=== PATIENT | female | born 1930 | race Caucasian/White ===

== ENCOUNTER → 2017-07-16 | Outpatient (CLI) | payer OTHER ==
[~2017-07-16] MED LIST: AML5T PO; DULO30CA2 PO; PRAV20TA3 PO
[2017-07-16 09:04] LABS: Basophils # (auto) 0 uL; Basophils % (auto) 0.8 % (0.0-2.0); Eosinophils # (auto) 0.3 uL; Eosinophils % (auto) 5.6 % (0.0-7.0); Hematocrit 36.1 % (36.0-46.0); Hemoglobin 11.7 g/dL (12.2-16.2); Lymphocytes # (auto) 1.5 uL; Lymphocytes % (auto) 26.5 % (10.0-50.0); Mean Corpuscular Hemoglobin 31.3 pg (28.0-32.0); Mean Corpuscular Hgb Conc. 32.4 g/dL (32.0-36.0); Mean Corpuscular Volume 96.7 fL (80.0-100.0); Monocytes # (auto) 0.6 uL; Neutrophils # (auto) 3.2 uL; Neutrophils % (auto) 57.1 % (37.0-80.0); Nucleated Red Blood Cells % 0.1 %; Platelet Count (auto) 248 10^3/uL (140-450); Red Blood Cells 3.73 10^6/uL (4.0-5.20); Red Cell Distribution Width 14.8 % (11.8-14.3); White Blood Cell 5.6 10^3/uL (4.4-10.8)
[2017-07-16 09:09] LABS: Urine Bacteria NONE SEEN /hpf (None Seen); Urine Blood Negative /uL (Negative); Urine Specific Gravity 1.009 (1.001-1.035); Urine WBC <1 /hpf (0 - 5)
[2017-07-16 09:28] LABS: Free T4 (Free Thyroxine) 1.13 ng/dL (0.89-1.76)
[2017-07-16 09:29] LABS: Free T3 2.81 pg/mL (2.3-4.2); T3 Total 1.07 ng/mL (0.60-1.81)
[2017-07-16 09:31] LABS: Albumin 3.6 g/dL (3.4-5.0); BUN/Creatinine Ratio 24.8; Bilirubin, Total 0.4 mg/dL (0.2-1.0); Calcium 9.7 mg/dL (8.5-10.1); Potassium 5.3 mmol/L (3.5-5.1); Total Protein 7.3 g/dL (6.4-8.2)
[2017-07-16 10:07] LABS: Folate (Folic Acid) > 24.0 ng/mL (5.38-24)
== END | disposition home or self-care (01) ==
LOC: LAB 08:26
PROVIDERS: ATTEND Family Medicine
DX: I10 Essential (primary) hypertension (principal); E78.5 Hyperlipidemia, unspecified; D64.9 Anemia, unspecified; R19.7 Diarrhea, unspecified
CPT/HCPCS: 36415; 80053; 80061; 81001; 82306; 82607; 82746; 84439; 84443; 84480; 84481; 85025

== ENCOUNTER 2017-08-17 10:40 | Emergency (ER) | payer OTHER ==
[~2017-08-17] VITALS: Ht 160 cm; Wt 65.8 kg
[2017-08-17 10:51] VITALS: BP 123/88
[2017-08-17] MEDS ORDERED: diphenhdrAMINE HCL 50 MG/1 ML VL IM ONE (12:00)
== END 2017-08-17 12:35 | disposition home or self-care (01) ==
LOC: ER 10:40
DX: L25.9 Unspecified contact dermatitis, unspecified cause (principal); H10.32 Unspecified acute conjunctivitis, left eye; E78.5 Hyperlipidemia, unspecified; I10 Essential (primary) hypertension; F17.210 Nicotine dependence, cigarettes, uncomplicated; Z88.0 Allergy status to penicillin; Z79.899 Other long term (current) drug therapy
CPT/HCPCS: 96372; 99283; J1200

== ENCOUNTER 2018-02-18 19:58 | Inpatient (IN) | payer OTHER ==
[~2018-02-18] VITALS: Ht 162.6 cm; Wt 71.0 kg
[2018-02-18] MEDS ORDERED: ASPirin 81 mg TAB PO ONE (20:30)
[2018-02-18] MEDS ORDERED: cloNIDine HCL 0.1 MG TAB PO ONE (21:15)
[2018-02-18 21:45] LABS: Basophils # (auto) 0 uL; Basophils % (auto) 0.6 % (0.0-2.0); Eosinophils # (auto) 0.2 uL; Eosinophils % (auto) 2.5 % (0.0-7.0); Hematocrit 37.6 % (36.0-46.0); Hemoglobin 12.2 g/dL (12.2-16.2); Lymphocytes # (auto) 1.2 uL; Lymphocytes % (auto) 15.3 % (10.0-50.0); Mean Corpuscular Hemoglobin 31.1 pg (28.0-32.0); Mean Corpuscular Hgb Conc. 32.5 g/dL (32.0-36.0); Mean Corpuscular Volume 95.7 fL (80.0-100.0); Monocytes # (auto) 0.7 uL; Monocytes % (auto) 8.5 % (0.0-12.0); Neutrophils # (auto) 5.6 uL; Neutrophils % (auto) 73.1 % (37.0-80.0); Platelet Count (auto) 203 10^3/uL (140-450); Red Blood Cells 3.93 10^6/uL (4.0-5.20); Red Cell Distribution Width 14.6 % (11.8-14.3); White Blood Cell 7.7 10^3/uL (4.4-10.8)
[2018-02-18 22:00] LABS: INR 0.89 (0.9-1.15); Partial Thromboplastin Time 26.7 sec (23.78-33.04); Prothrombin Time 9.6 sec (9.27-12.13)
[2018-02-18] MEDS ORDERED: ONDANSETRON HCL 4 MG/2 ML VIAL IV ONE (22:00)
[2018-02-18 22:01] LABS: Albumin 3.6 g/dL (3.4-5.0); Anion Gap 7 (5-15); Blood Urea Nitrogen 36 mg/dL (7-18); Calcium 9.2 mg/dL (8.5-10.1); Carbon Dioxide 27 mmol/L (21-32); Chloride 107 mmol/L (98-107); Glucose 99 mg/dL (74-106); Magnesium 2.5 mg/dL (1.6-2.6); Potassium 4.9 mmol/L (3.5-5.1); Sodium 141 mmol/L (136-145)
[2018-02-18 22:04] LABS: Alanine Aminotransferase 22 U/L (13-56); Aspartate Aminotransferase 20 U/L (15-37); BUN/Creatinine Ratio 24.5; GFR African American 43 mL/min; GFR Non-African American 36 mL/min
[2018-02-18 22:08] LABS: Alkaline Phosphatase 98 U/L (45-117); Bilirubin, Total 0.2 mg/dL (0.2-1.0); Total Protein 7.3 g/dL (6.4-8.2)
[2018-02-19] MEDS ORDERED: MAGN400C2 PO (05:55)
[2018-02-19] MEDS ORDERED: ALUM1SUS16 PO (06:03)
[2018-02-19] MEDS ORDERED: MEMA10TA PO (06:03)
[2018-02-19] MEDS ORDERED: ALPR0.25 PO (06:03)
[2018-02-19] MEDS ORDERED: LOPE2CAP PO (06:03)
[2018-02-19] MEDS ORDERED: FERR-20 PO (06:03)
[2018-02-19] MEDS ORDERED: SIMV10TA84 PO (06:03)
[2018-02-19] MEDS ORDERED: HYDR-3682 PO (06:03)
[2018-02-19] MEDS ORDERED: ALPRAZolam 0.25 MG TAB PO PRN (08:15)
[2018-02-19] MEDS ORDERED: ACETAMINOPHEN 500 MG TAB PO PRN (08:15)
[2018-02-19] MEDS ORDERED: ONDANSETRON HCL 4 MG/2 ML VIAL IV PRN (08:15)
[2018-02-19 08:29] LABS: Basophils # (auto) 0 uL; Basophils % (auto) 0.7 % (0.0-2.0); Eosinophils # (auto) 0.2 uL; Eosinophils % (auto) 2.8 % (0.0-7.0); Hematocrit 35.3 % (36.0-46.0); Hemoglobin 11.6 g/dL (12.2-16.2); Lymphocytes # (auto) 1.1 uL; Lymphocytes % (auto) 17.8 % (10.0-50.0); Mean Corpuscular Hemoglobin 31.5 pg (28.0-32.0); Mean Corpuscular Hgb Conc. 32.8 g/dL (32.0-36.0); Monocytes # (auto) 0.6 uL; Monocytes % (auto) 9.1 % (0.0-12.0); Neutrophils # (auto) 4.3 uL; Neutrophils % (auto) 69.6 % (37.0-80.0); Nucleated Red Blood Cells % 0.1 %; Platelet Count (auto) 182 10^3/uL (140-450); Red Blood Cells 3.67 10^6/uL (4.0-5.20); Red Cell Distribution Width 14.8 % (11.8-14.3); White Blood Cell 6.1 10^3/uL (4.4-10.8)
[2018-02-19 09:01] LABS: BUN/Creatinine Ratio 26.1; Calcium 9.1 mg/dL (8.5-10.1); Potassium 4.8 mmol/L (3.5-5.1)
[2018-02-19] MEDS ORDERED: NITROGLYCERIN 0.4 MG SL TAB SL ONE (10:00)
[2018-02-19] MEDS: amLODIPine BESYLATE 5 MG TAB PO SCH (10:00)
[2018-02-19] MEDS: MEMANTINE HCL 5 MG TAB PO SCH (10:00)
[2018-02-19] MEDS ORDERED: SOD CHL 0.45% 1,000 ML IV ONE (10:45)
[2018-02-19] MEDS ORDERED: SODIUM CHLORIDE 0.9% 1,000 ML IV ONE (11:30)
[2018-02-19 13:00] VITALS: BP 135/49
[2018-02-19 16:20] VITALS: BP 110/44
[2018-02-19 17:00] VITALS: BP 132/51
[2018-02-19 20:00] VITALS: BP 109/46
[2018-02-19 21:43] VITALS: BP 109/45
[2018-02-20] MEDS: HYDROcodone-ACET 5/325MG TAB PO PRN ×2 (04:24→08:52)
[2018-02-20 05:00] VITALS: BP 106/79
[2018-02-20 06:56] LABS: Basophils # (auto) 0 uL; Basophils % (auto) 0.6 % (0.0-2.0); Eosinophils # (auto) 0.2 uL; Eosinophils % (auto) 4.4 % (0.0-7.0); Hematocrit 36.1 % (36.0-46.0); Hemoglobin 11.5 g/dL (12.2-16.2); Lymphocytes # (auto) 1.1 uL; Lymphocytes % (auto) 19.7 % (10.0-50.0); Mean Corpuscular Hemoglobin 31.6 pg (28.0-32.0); Mean Corpuscular Hgb Conc. 31.9 g/dL (32.0-36.0); Mean Corpuscular Volume 99.1 fL (80.0-100.0); Monocytes # (auto) 0.5 uL; Monocytes % (auto) 9.6 % (0.0-12.0); Neutrophils # (auto) 3.7 uL; Neutrophils % (auto) 65.7 % (37.0-80.0); Nucleated Red Blood Cells % 0.1 %; Platelet Count (auto) 167 10^3/uL (140-450); Red Blood Cells 3.65 10^6/uL (4.0-5.20); White Blood Cell 5.7 10^3/uL (4.4-10.8)
[2018-02-20 07:02] LABS: Anion Gap 11 (5-15); BUN/Creatinine Ratio 26.8; Blood Urea Nitrogen 34 mg/dL (7-18); Calcium 8.5 mg/dL (8.5-10.1); Carbon Dioxide 22 mmol/L (21-32); Chloride 112 mmol/L (98-107); GFR African American 51 mL/min; GFR Non-African American 43 mL/min; Glucose 69 mg/dL (74-106); Potassium 4.9 mmol/L (3.5-5.1); Sodium 145 mmol/L (136-145)
[2018-02-20 09:00] VITALS: BP 124/52
[2018-02-20] MEDS ORDERED: SODIUM CHLORIDE 0.9% 1,000 ML IV ONE (09:45)
[2018-02-20] MEDS: amLODIPine BESYLATE 5 MG TAB PO SCH (10:00)
[2018-02-20] MEDS: MEMANTINE HCL 5 MG TAB PO SCH (10:04)
[2018-02-20 13:00] VITALS: BP 126/60
[2018-02-20 15:05] VITALS: BP 126/60
== END 2018-02-20 16:00 | DRG 682 ==
LOC: ER 19:58 → TELE 19:59 → TELE-CENTR 02-19 12:02
PROVIDERS: ADMIT Nurse Practitioner Family; ATTEND Internal Medicine
DX: I12.9 Hypertensive chronic kidney disease with stage 1 through stage 4 chronic kidney disease, or unspecified chronic kidney disease (principal); N17.0 Acute kidney failure with tubular necrosis; F03.90 Unspecified dementia, unspecified severity, without behavioral disturbance, psychotic disturbance, mood disturbance, and anxiety; I25.10 Atherosclerotic heart disease of native coronary artery without angina pectoris; Z96.642 Presence of left artificial hip joint; F32.9 Major depressive disorder, single episode, unspecified; R91.8 Other nonspecific abnormal finding of lung field; N18.3 Chronic kidney disease, stage 3 (moderate); J44.9 Chronic obstructive pulmonary disease, unspecified; K80.20 Calculus of gallbladder without cholecystitis without obstruction; Z87.891 Personal history of nicotine dependence; Z88.0 Allergy status to penicillin; Z91.048 Other nonmedicinal substance allergy status; Z79.899 Other long term (current) drug therapy; Z80.8 Family history of malignant neoplasm of other organs or systems
CPT/HCPCS: 36415; 71045; 71250; 74176; 80048; 80053; 83735; 83880; 84443; 84484; 85025; 85379; 85610; 85730; 87081; 93005; 93306; 94761; 96361; 96374; J2405

== ENCOUNTER 2018-08-04 06:28 | Inpatient (IN) | payer OTHER ==
[~2018-08-04] VITALS: Ht 162.6 cm; Wt 68.0 kg
[~2018-08-04 06:28] MED LIST changes: +ALPR0.25 PO; +ALUM1SUS16 PO; -AML5T PO; +FERR-20 PO; +HYDR-3682 PO; +LOPE2CAP PO; +MAGN400C2 PO; +MEMA10TA PO; +SIMV10TA84 PO
[2018-08-04] MEDS ORDERED: FUROSEMIDE 40 MG/4 ML VIAL IV ONE (07:15)
[2018-08-04] MEDS ORDERED: VANCOMYCIN 1GM/250ML 250 ML IV ONE (07:45)
[2018-08-04 08:33] LABS: Basophils # (auto) 0.1 uL; Basophils % (auto) 0.9 % (0.0-2.0); Eosinophils # (auto) 0.3 uL; Eosinophils % (auto) 4.5 % (0.0-7.0); Hematocrit 34.5 % (36.0-46.0); Hemoglobin 11.1 g/dL (12.2-16.2); Lymphocytes # (auto) 1.1 uL; Lymphocytes % (auto) 19.6 % (10.0-50.0); Mean Corpuscular Hemoglobin 30.4 pg (28.0-32.0); Mean Corpuscular Hgb Conc. 32.1 g/dL (32.0-36.0); Mean Corpuscular Volume 94.7 fL (80.0-100.0); Monocytes # (auto) 0.6 uL; Monocytes % (auto) 10.8 % (0.0-12.0); Neutrophils # (auto) 3.7 uL; Neutrophils % (auto) 64.2 % (37.0-80.0); Nucleated Red Blood Cells % 0.1 %; Platelet Count (auto) 198 10^3/uL (140-450); Red Blood Cells 3.64 10^6/uL (4.0-5.20); Red Cell Distribution Width 16.2 % (11.8-14.3); White Blood Cell 5.7 10^3/uL (4.4-10.8)
[2018-08-04 08:46] LABS: Alanine Aminotransferase 18 U/L (13-56); Albumin 3.5 g/dL (3.4-5.0); Anion Gap 6 (5-15); Aspartate Aminotransferase 14 U/L (15-37); BUN/Creatinine Ratio 20.8; Blood Urea Nitrogen 30 mg/dL (7-18); Calcium 9.7 mg/dL (8.5-10.1); Carbon Dioxide 27 mmol/L (21-32); Chloride 110 mmol/L (98-107); GFR African American 44 mL/min; GFR Non-African American 37 mL/min; Glucose 84 mg/dL (74-106); Potassium 4.7 mmol/L (3.5-5.1); Sodium 143 mmol/L (136-145)
[2018-08-04 08:50] LABS: Alkaline Phosphatase 83 U/L (45-117); Bilirubin, Total 0.3 mg/dL (0.2-1.0); Total Protein 7.1 g/dL (6.4-8.2)
[2018-08-04 08:54] LABS: INR 0.93 (0.9-1.15); Partial Thromboplastin Time 27.4 sec (23.78-33.04)
[2018-08-04] MEDS ORDERED: ONDANSETRON HCL 4 MG/2 ML VIAL IV PRN (14:00)
[2018-08-04] MEDS ORDERED: NITROGLYCERIN 0.4 MG SL TAB SL PRN (14:00)
[2018-08-04] MEDS ORDERED: MORPHINE SULF INJ 2 MG/ML SYRINGE 1ML IV PRN (14:00)
[2018-08-04] MEDS ORDERED: MORPHINE SULFATE 4 MG/ML SYR/VIAL IV PRN (14:00)
[2018-08-04] MEDS ORDERED: ACETAMINOPHEN 500 MG TAB PO PRN (14:00)
[2018-08-04] MEDS: HYDROcodone-ACET 5/325MG TAB PO PRN (17:47)
[2018-08-04] MEDS: FERROUS SULFATE 325 MG TAB PO SCH (18:14)
[2018-08-04 18:22] LABS: Urine Bacteria FEW /hpf (None Seen); Urine Blood 2+ /uL (Negative); Urine Specific Gravity 1.005 (1.001-1.035); Urine WBC 61 /hpf (0 - 5)
--- NOTE | 2018-08-04 20:03 | NUR ---
Patient arrived on unit form ED. Patient awake and alert, no s/s of distress. Bed locked in lowest position with call light in reach. Will continue to monitor.
--- NOTE | 2018-08-04 21:22 | NUR ---
PER PATIENT She lives at [facility] and is in a wheelchair and does not walk. She has no teeth but no problems eating. Addendum: 08/04/18 at 2136 by TAPAN DARLING RN Amended: Links added.
[2018-08-04 22:00] VITALS: BP 126/55
[2018-08-04] MEDS ORDERED: ATORVASTATIN 20 MG TAB PO SCH (22:00)
[2018-08-04] MEDS: MEMANTINE HCL 5 MG TAB PO SCH (22:00)
[2018-08-04] MEDS: CLINDAMYCIN 300MG IV 50 ML IV SCH (22:36)
[2018-08-04] MEDS: BENAZEPRIL HCL 10 MG TAB PO SCH (22:37)
[2018-08-05] MEDS: HYDROcodone-ACET 5/325MG TAB PO PRN (03:15)
[2018-08-05 05:16] VITALS: BP 118/58
[2018-08-05] MEDS: CLINDAMYCIN 300MG IV 50 ML IV SCH ×2 (05:47→14:00)
[2018-08-05 07:44] LABS: Basophils # (auto) 0.1 uL; Basophils % (auto) 0.9 % (0.0-2.0); Eosinophils # (auto) 0.2 uL; Eosinophils % (auto) 3.2 % (0.0-7.0); Hematocrit 33.6 % (36.0-46.0); Hemoglobin 10.8 g/dL (12.2-16.2); Lymphocytes # (auto) 1.3 uL; Lymphocytes % (auto) 21.1 % (10.0-50.0); Mean Corpuscular Hemoglobin 29.9 pg (28.0-32.0); Mean Corpuscular Volume 93.6 fL (80.0-100.0); Monocytes # (auto) 0.5 uL; Monocytes % (auto) 8.7 % (0.0-12.0); Neutrophils # (auto) 3.9 uL; Neutrophils % (auto) 66.1 % (37.0-80.0); Nucleated Red Blood Cells % 0.1 %; Platelet Count (auto) 200 10^3/uL (140-450); Red Blood Cells 3.59 10^6/uL (4.0-5.20); Red Cell Distribution Width 15.8 % (11.8-14.3); White Blood Cell 5.9 10^3/uL (4.4-10.8)
[2018-08-05 08:10] LABS: Calcium 9.1 mg/dL (8.5-10.1); Potassium 4.4 mmol/L (3.5-5.1)
[2018-08-05 08:16] LABS: BUN/Creatinine Ratio 22.1
[2018-08-05 09:00] VITALS: BP 123/51
[2018-08-05] MEDS ORDERED: CRAN425C2 PO (09:34)
[2018-08-05] MEDS ORDERED: MELA3TAB27 PO (09:34)
[2018-08-05] MEDS ORDERED: PRO20T PO (09:34)
[2018-08-05] MEDS ORDERED: ALPR0.25 PO (09:34)
[2018-08-05] MEDS ORDERED: ASCO500T11 PO (09:34)
[2018-08-05] MEDS ORDERED: ACET500C8 PO (09:34)
[2018-08-05] MEDS ORDERED: MULT-228 PO (09:34)
[2018-08-05] MEDS ORDERED: FERR-20 PO (09:34)
[2018-08-05] MEDS ORDERED: CETI10TA80 PO (09:34)
[2018-08-05] MEDS ORDERED: CYA100I PO (09:34)
[2018-08-05] MEDS: FERROUS SULFATE 325 MG TAB PO SCH ×2 (09:36→12:00)
[2018-08-05] MEDS: MEMANTINE HCL 5 MG TAB PO SCH (09:41)
[2018-08-05] MEDS: BENAZEPRIL HCL 10 MG TAB PO SCH (09:41)
[2018-08-05] MEDS ORDERED: FUROSEMIDE 20 MG/2 ML VIAL IV SCH (10:00)
[2018-08-05] MEDS ORDERED: METOPROLOL SUCCINATE XL 50 MG TAB PO SCH (10:00)
[2018-08-05] MEDS ORDERED: PANTOPRAZOLE 40 MG TAB PO SCH (10:00)
--- NOTE | 2018-08-05 12:04 | NUR ---
Hospitalist at bedside MD Garay aware of patients status, abnormal labs, VS. MD reviewed POC with patient and daughter at bedside. New orders received for d/c home today and new prescriptions obtained. Will d/c as ordered
--- NOTE | 2018-08-05 12:12 | NUR ---
CHAPERONED DR. ENRIQUE INTO PT ROOM
[2018-08-05 13:00] VITALS: BP 116/44
--- NOTE | 2018-08-05 14:00 | NUR ---
Bradley catheter dc'd Order to discontinue bradley catheter. Bradley dc'd with clean technique following deflation of balloon. Patient tolerated well with no complaints of pain. Continue care.
--- NOTE | 2018-08-05 15:30 | NUR ---
Discharge instructions given as ordered to patient and after pt's consemt. Encourage to follow up with PMD as instructed. All questions and concerns addressed. Patient verbalized understanding. Medication reconciliation form completed and copy given to patient. Home medications held in Pharmacy returned to patient, and needed vaccines given. IV removed with catheter intact, pressure dressing applied, bradley catheter removed. Telemetry unit returned to ICU. Patient taken to vehicle via wheelchair with all personal belongings, accompanied by staff and family member. No distress noted at time of departure. Addendum: 08/05/18 at 1603 by Cady Faust RN Discharge instructions given as ordered to patient and after pt's consent, daughter at bedside. Encourage to follow up with PMD as instructed. All questions and concerns addressed. Patient verbalized understanding. Medication reconciliation form completed and copy given to patient. IV removed with catheter intact, pressure dressing applied, bradley catheter removed. Patient taken to vehicle via wheelchair with all personal belongings, accompanied by daughter and [facility] personnel. No distress noted at time of departure.
== END 2018-08-05 16:44 | disposition home or self-care (01) | DRG 602 ==
LOC: EDBD 06:28 → ER 06:28 → OVERFLOW 14:31 → CENTRAL 19:37
PROVIDERS: ADMIT Nurse Practitioner Acute Care; ATTEND Family Medicine
DX: L03.115 Cellulitis of right lower limb (principal); J18.1 Lobar pneumonia, unspecified organism; I50.33 Acute on chronic diastolic (congestive) heart failure; J44.0 Chronic obstructive pulmonary disease with (acute) lower respiratory infection; N39.0 Urinary tract infection, site not specified; I13.0 Hypertensive heart and chronic kidney disease with heart failure and stage 1 through stage 4 chronic kidney disease, or unspecified chronic kidney disease; E78.00 Pure hypercholesterolemia, unspecified; E78.5 Hyperlipidemia, unspecified; Z96.649 Presence of unspecified artificial hip joint; F03.90 Unspecified dementia, unspecified severity, without behavioral disturbance, psychotic disturbance, mood disturbance, and anxiety; R91.1 Solitary pulmonary nodule; N18.3 Chronic kidney disease, stage 3 (moderate); Z85.118 Personal history of other malignant neoplasm of bronchus and lung; Z87.891 Personal history of nicotine dependence; Z88.0 Allergy status to penicillin; Z91.040 Latex allergy status; Z79.01 Long term (current) use of anticoagulants; Z79.899 Other long term (current) drug therapy; Z99.3 Dependence on wheelchair
CPT/HCPCS: 36415; 71045; 80048; 80053; 80061; 81001; 83880; 84443; 84484; 85025; 85610; 85730; 87040; 87081; 87086; 87088; 87186; 93306; 93971; 96365; 96375; G0378; J3490

== ENCOUNTER → 2018-09-02 | Outpatient (CLI) | payer OTHER ==
[~2018-09-02] MED LIST changes: +ACET500C8 PO; +ASCO500T11 PO; +CETI10TA80 PO; +CRAN425C2 PO; +CYA100I PO; -HYDR-3682 PO; +MELA3TAB27 PO; +MULT-228 PO; -PRAV20TA3 PO; +PRO20T PO
[2018-09-02 14:57] LABS: Urine Bacteria NONE SEEN /hpf (None Seen); Urine Blood Negative /uL (Negative); Urine Specific Gravity 1.008 (1.001-1.035); Urine WBC 1 /hpf (0 - 5)
== END | disposition home or self-care (01) ==
LOC: LAB 14:18
PROVIDERS: ATTEND Nurse Practitioner
DX: N39.0 Urinary tract infection, site not specified (principal)
CPT/HCPCS: 81001; 87086

== ENCOUNTER → 2018-09-23 | Outpatient (CLI) | payer OTHER | END | disposition home or self-care (01) | LOC: LAB 10:14 | PROVIDERS: ATTEND Internal Medicine | DX: N39.0 Urinary tract infection, site not specified (principal) | CPT/HCPCS: 87086 ==

== ENCOUNTER → 2018-10-09 | Outpatient (CLI) | payer OTHER ==
[2018-10-09 14:46] LABS: Urine Bacteria NONE SEEN /hpf (None Seen); Urine Blood Negative /uL (Negative); Urine Specific Gravity 1.009 (1.001-1.035); Urine WBC <1 /hpf (0 - 5)
== END | disposition home or self-care (01) ==
LOC: LAB 14:27
PROVIDERS: ATTEND Nurse Practitioner
DX: N30.90 Cystitis, unspecified without hematuria (principal)
CPT/HCPCS: 81001; 87086; 87088; 87186

== ENCOUNTER → 2018-11-07 | Outpatient (CLI) | payer OTHER ==
[2018-11-07 09:50] LABS: Urine Bacteria NONE SEEN /hpf (None Seen); Urine Blood Negative /uL (Negative); Urine WBC 38 /hpf (0 - 5); Urine WBC Clumps PRESENT /hpf (None Seen)
== END | disposition home or self-care (01) ==
LOC: LAB 09:17
PROVIDERS: ATTEND Nurse Practitioner
DX: E78.00 Pure hypercholesterolemia, unspecified (principal); I10 Essential (primary) hypertension
CPT/HCPCS: 81001; 87086; 87088; 87186

== ENCOUNTER → 2019-03-09 | Outpatient (CLI) | payer OTHER ==
[2019-03-09 16:43] LABS: Urine Bacteria MANY /hpf (None Seen); Urine Blood 1+ /uL (Negative); Urine Specific Gravity 1.013 (1.001-1.035); Urine WBC 1672 /hpf (0 - 5); Urine WBC Clumps PRESENT /hpf (None Seen)
== END | disposition home or self-care (01) ==
LOC: LAB 16:09
PROVIDERS: ATTEND Internal Medicine
DX: N39.0 Urinary tract infection, site not specified (principal)
CPT/HCPCS: 81001; 87086

== ENCOUNTER → 2019-04-21 | Outpatient (CLI) | payer OTHER ==
[2019-04-21 09:37] LABS: Urine Bacteria MANY /hpf (None Seen); Urine Blood Negative /uL (Negative); Urine Specific Gravity 1.008 (1.001-1.035); Urine WBC 338 /hpf (0 - 5); Urine WBC Clumps PRESENT /hpf (None Seen)
== END | disposition home or self-care (01) ==
LOC: LAB 09:19
PROVIDERS: ATTEND Nurse Practitioner
DX: N39.0 Urinary tract infection, site not specified (principal); I13.0 Hypertensive heart and chronic kidney disease with heart failure and stage 1 through stage 4 chronic kidney disease, or unspecified chronic kidney disease; I50.9 Heart failure, unspecified; N18.3 Chronic kidney disease, stage 3 (moderate); E78.00 Pure hypercholesterolemia, unspecified
CPT/HCPCS: 81001; 87086

== ENCOUNTER 2019-06-11 09:17 | Inpatient (IN) | payer OTHER ==
[~2019-06-11] VITALS: Ht 165.1 cm; Wt 70.7 kg
[2019-06-11] MEDS ORDERED: SODIUM CHLORIDE 0.9% 1,000 ML IV ONE (10:10)
[2019-06-11 10:41] LABS: Basophils # (auto) 0.1 uL; Basophils % (auto) 0.5 % (0.0-2.0); Eosinophils # (auto) 0 uL; Eosinophils % (auto) 0.1 % (0.0-7.0); Hematocrit 30.1 % (36.0-46.0); Hemoglobin 9.8 g/dL (12.2-16.2); Lymphocytes # (auto) 1.7 uL; Lymphocytes % (auto) 16.7 % (10.0-50.0); Mean Corpuscular Hemoglobin 30.8 pg (28.0-32.0); Mean Corpuscular Hgb Conc. 32.7 g/dL (32.0-36.0); Mean Corpuscular Volume 94.2 fL (80.0-100.0); Monocytes % (auto) 10.3 % (0.0-12.0); Neutrophils # (auto) 7.1 uL; Neutrophils % (auto) 72.4 % (37.0-80.0); Platelet Count (auto) 212 10^3/uL (140-450); Red Cell Distribution Width 15.8 % (11.8-14.3); White Blood Cell 9.9 10^3/uL (4.4-10.8)
[2019-06-11 10:45] LABS: Calcium 9.1 mg/dL (8.5-10.1); Potassium 4.9 mmol/L (3.5-5.1)
[2019-06-11 10:49] LABS: Bilirubin, Total 0.5 mg/dL (0.2-1.0); Total Protein 6.9 g/dL (6.4-8.2)
[2019-06-11] MEDS ORDERED: cefTRIAXone 1GM/50ML D5W 50 ML IV ONE ×2 (11:30→13:45)
[2019-06-11 11:58] LABS: Urine Bacteria MANY /hpf (None Seen); Urine Blood TRACE /uL (Negative); Urine Specific Gravity 1.016 (1.001-1.035); Urine WBC 1536 /hpf (0 - 5); Urine WBC Clumps PRESENT /hpf (None Seen)
[2019-06-11] MEDS ORDERED: MORPHINE SULF INJ 2 MG/ML SYRINGE 1ML IV ONE (12:15)
[2019-06-11] MEDS ORDERED: ONDANSETRON HCL 4 MG/2 ML VIAL IV ONE (12:15)
[2019-06-11] MEDS: SODIUM CHLORIDE 0.9% 1,000 ML IV SCH (13:33)
[2019-06-11] MEDS ORDERED: NITROGLYCERIN 0.4 MG SL TAB SL PRN (13:45)
[2019-06-11] MEDS ORDERED: MORPHINE SULF INJ 2 MG/ML SYRINGE 1ML IV PRN (13:45)
[2019-06-11] MEDS ORDERED: ONDANSETRON HCL 4 MG/2 ML VIAL IV PRN (13:45)
[2019-06-11] MEDS ORDERED: ALPRAZolam 0.25 MG TAB PO PRN (13:45)
[2019-06-11 14:30] LABS: Amylase 50 U/L (25-115); Lipase 67 U/L (73-393)
--- NOTE | 2019-06-11 14:30 | NUR ---
Telemetry admit from ER THAOJEANETTE admitted to Telemetry unit after SBAR received. Patient now on continuous telemetry monitoring, tele box # 12 and telemetry reading on arrival to unit is sinus rhythm at 88. No s/s of distress or SOB, no pain noted or reported at this time. Patient placed on bedside oxygen 2L via NC. Patient is alert only to self, reoriented to person, place, time, and situation, will reorient patient as needed throughout shift. Updated on POC and to call for assistance as needed, reinforcement needed. Bed locked in lowest position, side rails x 3 are up, call light is within reach, bed alarm is on. Will continue to monitor q1hr and PRN for changes.
[2019-06-11 15:00] VITALS: BP 142/65
[2019-06-11] MEDS ORDERED: FAMOTIDINE 20 MG TAB PO SCH (15:00)
--- NOTE | 2019-06-11 15:00 | NUR ---
Patient only alert to self, reviewed chart and received information from daughter, Jocelyn, for admission.
[2019-06-11] MEDS ORDERED: DOCU-94 PO (16:20)
[2019-06-11] MEDS ORDERED: PROP10TA57 PO (16:20)
[2019-06-11] MEDS ORDERED: MAGN200T11 PO (16:20)
[2019-06-11] MEDS ORDERED: ASCO500T11 PO (16:20)
[2019-06-11] MEDS ORDERED: OXYB5TAB61 PO (16:20)
[2019-06-11] MEDS ORDERED: MUPI2OIN2 EX (16:20)
[2019-06-11] MEDS: ACETAMINOPHEN 500 MG TAB PO PRN (16:34)
--- NOTE | 2019-06-11 16:34 | NUR ---
Patient has 102.8 fever, cooling measures in place and medication administered per MD orders.
[2019-06-11 16:56] VITALS: BP 124/60
[2019-06-11] MEDS: PROPRANOLOL HCL 20 MG TAB PO SCH ×2 (18:11→21:30)
--- NOTE | 2019-06-11 19:00 | NUR ---
OPENING NOTE Received report from day shift RN. Patient is A&O X's 1-2 with no s/s of distress noted and reports no pain at this time. Patient able to tell me her name, and stated the year to be 2018. Patient unaware of where she was at. Reoriented patient that she was in the hospital. Patient then stated she came because her stomach was hurting really bad. Patient continues to be confused and needs to be reoriented frequently. Educated patient on POC and to use call light when in need of assistance. Bed is in lowest/locked position with side rails up X's 2 and call light is within reach of patient. Bed alarm is on for safety. Will continue care.
[2019-06-11] MEDS: MELATONIN 5 MG PO SCH (21:30)
[2019-06-11] MEDS: PRAVASTATIN SODIUM 20 MG TAB PO SCH (21:30)
[2019-06-11 21:51] VITALS: BP 112/47
[2019-06-11] MEDS: traMADol HCL 50 MG TAB PO PRN (22:18)
--- NOTE | 2019-06-11 23:18 | NUR ---
PAIN REASSESSMENT Patient is now resting in bed with no s/s of distress or discomfort. Will continue care.
[2019-06-12] VITALS (7 sets, daily range): BP systolic 87–136; BP diastolic 31–54
[2019-06-12] MEDS: SODIUM CHLORIDE 0.9% 1,000 ML IV SCH ×4 (00:13→21:08)
[2019-06-12] MEDS: ACETAMINOPHEN 500 MG TAB PO PRN ×2 (04:10→18:46)
--- NOTE | 2019-06-12 04:56 | NUR ---
TEMPERATURE Temp at 100.7 . Cooling measures initiated and medication administered per MD orders
--- NOTE | 2019-06-12 05:29 | NUR ---
SPOKE WITH FAMILY MEMBER Patient's daughter, sarah beth called. Password was obtained. Sarah Beth was updated on patient's POC. All questions/concerns were answered at this time. Sarah Beth requested to be informed about when the surgical consult is done and if she could be on the phone when the surgeon is present. She says she wants to be able to help make decisions in her mother's care. Will notify day shift RN
[2019-06-12] MEDS: PROPRANOLOL HCL 20 MG TAB PO SCH (05:50)
--- NOTE | 2019-06-12 05:55 | NUR ---
TEMP REASSESSMENT temp at 99.0. continuing cooling measures
--- NOTE | 2019-06-12 06:56 | NUR ---
PATIENT'S DAUGHTER CALLED Patient's daughter Glenna called. Password was received. She was updated on POC and patient's status. All questions answered. She will be in later today to visit patient.
[2019-06-12 07:09] LABS: Basophils # (auto) 0 uL; Basophils % (auto) 0.4 % (0.0-2.0); Eosinophils # (auto) 0 uL; Eosinophils % (auto) 0.3 % (0.0-7.0); Hematocrit 25.9 % (36.0-46.0); Hemoglobin 8.6 g/dL (12.2-16.2); Lymphocytes # (auto) 1.7 uL; Lymphocytes % (auto) 17.7 % (10.0-50.0); Mean Corpuscular Hemoglobin 31.5 pg (28.0-32.0); Mean Corpuscular Hgb Conc. 33.4 g/dL (32.0-36.0); Mean Corpuscular Volume 94.4 fL (80.0-100.0); Monocytes % (auto) 10.8 % (0.0-12.0); Neutrophils # (auto) 6.8 uL; Neutrophils % (auto) 70.8 % (37.0-80.0); Platelet Count (auto) 182 10^3/uL (140-450); Red Blood Cells 2.74 10^6/uL (4.0-5.20); Red Cell Distribution Width 15.5 % (11.8-14.3); White Blood Cell 9.5 10^3/uL (4.4-10.8)
[2019-06-12 07:21] LABS: Albumin 2.2 g/dL (3.4-5.0); Calcium 8.2 mg/dL (8.5-10.1); Potassium 4.8 mmol/L (3.5-5.1)
[2019-06-12 07:26] LABS: BUN/Creatinine Ratio 16.7; Bilirubin, Total 0.4 mg/dL (0.2-1.0); Total Protein 5.6 g/dL (6.4-8.2)
--- NOTE | 2019-06-12 07:30 | NUR ---
Opening Shift Note Assumed care of patient, asleep and arouses to name and alert. No S/S of distress/SOB. Pt denies having any pain at this time. Bed in lowest and locked position with side rails up x2 and call light in reach. Instructed on POC and to call for assist PRN, will continue to monitor for changes Q1hr and PRN.
--- NOTE | 2019-06-12 07:45 | NUR ---
PAGED M[facility] HOSPITALIST REGARDING PATIENT DECREASED BLOOD PRESSURE.
--- NOTE | 2019-06-12 07:48 | NUR ---
RECEIVED CALL BACK FROM LUIZA BROWNLEE. RN NOTIFIED LUIZA BROWNLEE OF THE PATIENTS BLOOD PRESSURE OF 87/42. NEW ORDERS RECEIVED FOR 5%ALBUMIN 250ML BOLUS ONE TIME. NEW ORDERS READ BACK AND VERIFIED.
[2019-06-12] MEDS ORDERED: ALBUMIN 5% 250 ML IV ONE (08:00)
[2019-06-12] MEDS: DULoxetine HCL 30 MG CAP PO SCH (10:45)
[2019-06-12] MEDS: MEMANTINE HCL 5 MG TAB PO SCH (10:45)
[2019-06-12] MEDS: cefTRIAXone 1GM/50ML D5W 50 ML IV SCH (10:45)
[2019-06-12] MEDS: traMADol HCL 50 MG TAB PO PRN (10:46)
--- NOTE | 2019-06-12 12:07 | NUR ---
SPOKE TO DR. ENRIQUE. NEW ORDERS RECEIVED FOR CARDIOLOGY CONSULT, 12 LEAD EKG AND TROPONIN BLOOD DRAW. NEW ORDERS READ BACK AND VERIFIED.
--- NOTE | 2019-06-12 12:45 | NUR ---
12 LEAD EKG INITIATED AND PLACED IN CHART
--- NOTE | 2019-06-12 14:23 | NUR ---
SPOKE TO DR. ENRIQUE. NEW ORDERS RECEIVED FOR NS AT 150, CANCELL CHEST CT, AND ADVANCE TO CARDIAC DIET. NEW ORDERS READ BACK AND VERIFIED.
--- NOTE | 2019-06-12 19:00 | NUR ---
OPENING NOTE Received report from day shift RN. Patient is resting in bed with no s/s of discomfort or distress. Bed is in lowest/locked position with side rails up X's 2 and call light is within reach of patient. Bed alarm is on and fall precautions are in place. Will continue care of patient.
--- NOTE | 2019-06-12 20:00 | NUR ---
TEMPERATURE REASSESSMENT Temp at 99.2. Still implementing cooling measures at this time. Patient denies any pain and shows no s/s of discomfort. Will continue care.
[2019-06-12] MEDS: PRAVASTATIN SODIUM 20 MG TAB PO SCH (21:08)
[2019-06-12] MEDS: MELATONIN 5 MG PO SCH (21:08)
[2019-06-13] MEDS: SODIUM CHLORIDE 0.9% 1,000 ML IV SCH ×2 (03:43→10:30)
[2019-06-13 05:52] VITALS: BP 117/54
--- NOTE | 2019-06-13 07:15 | NUR ---
Opening Shift Note Assumed care of patient, awake and alert. No S/S of distress/SOB or pain. Instructed on POC and to call for assist PRN, will continue to monitor for changes Q1hr and PRN. Fall precautions in place per safety protocol.
[2019-06-13 09:00] VITALS: BP 113/54
[2019-06-13] MEDS: cefTRIAXone 1GM/50ML D5W 50 ML IV SCH (10:06)
[2019-06-13] MEDS: DULoxetine HCL 30 MG CAP PO SCH (10:07)
[2019-06-13] MEDS: MEMANTINE HCL 5 MG TAB PO SCH (10:08)
[2019-06-13 13:00] VITALS: BP 148/54
[2019-06-13] MEDS ORDERED: HYDROcodone-ACET 5/325MG TAB PO ONE (13:00)
--- NOTE | 2019-06-13 13:30 | NUR ---
Bradley catheter dc'd Order to discontinue bradley catheter. Bradley dc'd with clean technique following deflation of balloon. Patient tolerated well with no complaints of pain. Continue care.
--- NOTE | 2019-06-13 15:07 | NUR ---
Discharge instructions given as ordered. Encourage to follow up with PMD as instructed. All questions and concerns addressed. Patient verbalized understanding. Medication reconciliation form completed and copy given to patient.IV removed with catheter intact, pressure dressing applied, bradley catheter removed. Telemetry unit returned to ICU. Patient taken to vehicle via wheelchair with all personal belongings, accompanied by staff and family member. No distress noted at time of departure.
== END 2019-06-13 15:06 | disposition home or self-care (01) | DRG 871 ==
LOC: EDBD 09:17 → ER 09:17 → TELE 09:18 → TELE-EAST 14:24
PROVIDERS: ADMIT Internal Medicine; ATTEND Family Medicine
DX: A41.9 Sepsis, unspecified organism (principal); G93.41 Metabolic encephalopathy; N17.9 Acute kidney failure, unspecified; N39.0 Urinary tract infection, site not specified; E11.22 Type 2 diabetes mellitus with diabetic chronic kidney disease; F03.90 Unspecified dementia, unspecified severity, without behavioral disturbance, psychotic disturbance, mood disturbance, and anxiety; F17.200 Nicotine dependence, unspecified, uncomplicated; Z96.649 Presence of unspecified artificial hip joint; I70.90 Unspecified atherosclerosis; J44.9 Chronic obstructive pulmonary disease, unspecified; I12.9 Hypertensive chronic kidney disease with stage 1 through stage 4 chronic kidney disease, or unspecified chronic kidney disease; K80.20 Calculus of gallbladder without cholecystitis without obstruction; R16.1 Splenomegaly, not elsewhere classified; N18.9 Chronic kidney disease, unspecified; N28.1 Cyst of kidney, acquired; Z88.0 Allergy status to penicillin; Z91.040 Latex allergy status; Z83.3 Family history of diabetes mellitus; Z85.118 Personal history of other malignant neoplasm of bronchus and lung; Z90.710 Acquired absence of both cervix and uterus
CPT/HCPCS: 36415; 71045; 74176; 76705; 80053; 81001; 82150; 83690; 84484; 85025; 87040; 87086; 87088; 87186; 93005; 96365; 96375; G0378; J0696; J2405

== ENCOUNTER 2019-06-15 08:53 | Inpatient (IN) | payer OTHER ==
[~2019-06-15] VITALS: Ht 162.6 cm; Wt 71.0 kg
[~2019-06-15 08:53] MED LIST changes: +DOCU-94 PO; +MAGN200T11 PO; -MAGN400C2 PO; +MUPI2OIN2 EX; +OXYB5TAB61 PO; +PROP10TA57 PO
[2019-06-15] MEDS ORDERED: IPRATROPIUM BROM 0.5 MG/2.5ML INH SOL NEB ONE (09:45)
[2019-06-15] MEDS ORDERED: ALBUTEROL SULF 2.5 MG/0.5ML(0.5%) NEB SOLN NEB ONE (09:45)
[2019-06-15 10:07] LABS: Basophils # (auto) 0 uL; Basophils % (auto) 0.2 % (0.0-2.0); Eosinophils # (auto) 0 uL; Eosinophils % (auto) 0.4 % (0.0-7.0); Hematocrit 30.4 % (36.0-46.0); Hemoglobin 9.7 g/dL (12.2-16.2); Lymphocytes # (auto) 1.6 uL; Lymphocytes % (auto) 15.6 % (10.0-50.0); Mean Corpuscular Hemoglobin 30.3 pg (28.0-32.0); Mean Corpuscular Hgb Conc. 31.8 g/dL (32.0-36.0); Mean Corpuscular Volume 95.4 fL (80.0-100.0); Monocytes # (auto) 0.8 uL; Monocytes % (auto) 7.6 % (0.0-12.0); Neutrophils # (auto) 7.7 uL; Neutrophils % (auto) 76.2 % (37.0-80.0); Nucleated Red Blood Cells % 0.1 %; Platelet Count (auto) 287 10^3/uL (140-450); Red Blood Cells 3.19 10^6/uL (4.0-5.20); Red Cell Distribution Width 16.3 % (11.8-14.3); White Blood Cell 10.1 10^3/uL (4.4-10.8)
[2019-06-15 10:35] LABS: Albumin 2.6 g/dL (3.4-5.0); Calcium 9.3 mg/dL (8.5-10.1); Magnesium 2.3 mg/dL (1.6-2.6); Potassium 4.5 mmol/L (3.5-5.1)
[2019-06-15 10:39] LABS: BUN/Creatinine Ratio 19.2; Bilirubin, Total 0.3 mg/dL (0.2-1.0); Total Protein 6.8 g/dL (6.4-8.2)
[2019-06-15 10:45] LABS: INR 1.07 (0.9-1.15); Partial Thromboplastin Time 31.8 sec (23.64-32.05)
[2019-06-15] MEDS ORDERED: PIPERACILLIN-TAZOB 3.375GM 100 ML IV ONE (11:30)
[2019-06-15] MEDS ORDERED: LEVOFLOXACIN 500MG 100 ML IV ONE (13:00)
[2019-06-15] MEDS ORDERED: IPRATROPIUM BROM 0.5 MG/2.5ML INH SOL NEB PRN (13:45)
[2019-06-15] MEDS ORDERED: NITROGLYCERIN 0.4 MG SL TAB SL PRN (13:45)
[2019-06-15] MEDS ORDERED: FUROSEMIDE 20 MG/2 ML VIAL IV ONE (13:45)
[2019-06-15] MEDS ORDERED: MORPHINE SULF INJ 2 MG/ML SYRINGE 1ML IV PRN (13:45)
[2019-06-15] MEDS ORDERED: DOCUSATE SOD 100 MG CAP PO PRN (13:45)
[2019-06-15] MEDS ORDERED: ALBUTEROL SULF 2.5 MG/0.5ML(0.5%) NEB SOLN NEB PRN (13:45)
[2019-06-15 16:50] LABS: Urine Bacteria NONE SEEN /hpf (None Seen); Urine Blood Negative /uL (Negative); Urine Hyaline Cast FEW /lpf (0 - 2); Urine Specific Gravity 1.013 (1.001-1.035); Urine WBC 5 /hpf (0 - 5)
--- NOTE | 2019-06-15 19:40 | NUR ---
Respiratory note: PT ASSESSED FOR PRN MED NEB TX. HR 77, RR 16, SPO2 98% ON 4L NC. NO SIGNS OF ANY RESPIRATORY DISTRESS NOTED. ADVISED PT TO CALL IF TX IS NEEDED.
[2019-06-15 21:56] VITALS: BP 111/57
[2019-06-15] MEDS: CARVEDILOL 3.125 MG TAB PO SCH (22:35)
[2019-06-15] MEDS: ATORVASTATIN 20 MG TAB PO SCH (22:35)
[2019-06-16] MEDS: CARVEDILOL 3.125 MG TAB PO SCH ×2 (09:59→21:57)
[2019-06-16] MEDS: DULoxetine HCL 30 MG CAP PO SCH (09:59)
[2019-06-16] MEDS: FAMOTIDINE 20 MG TAB PO SCH (10:00)
[2019-06-16] MEDS ORDERED: LEVOFLOXACIN 250 MG TAB PO SCH (10:00)
[2019-06-16] MEDS: RAMIPRIL 2.5 MG CAP PO SCH (11:01)
[2019-06-16] MEDS: ONDANSETRON HCL 4 MG/2 ML VIAL IV PRN (11:05)
--- NOTE | 2019-06-16 11:50 | NUR ---
Respiratory note: PATIENT ASSESSED FOR PRN MED-NEB TX. MED-NEB NOT INDICATED AT THIS TIME PATIENT IS IN NO ACUTE RESPIRATORY DISTRESS AND DENIES NEED. PATIENT INSTRUCTED TO CALL FOR RT IF SHE FEELS THE NEED FOR TX AT A LATER TIME. SPO2 99% 4LPM N/C
--- NOTE | 2019-06-16 12:06 | NUR ---
THORACENTESIS PT RECEIVED IN ULTRASOUND VIA GURNEY FROM ER-1 FOR RIGHT THORACENTESIS. PLACED ON 02 AT 3L/MIN VIA NC. V/S: BP 143/50, HR 82, RR 21, 02 SAT 100%.
--- NOTE | 2019-06-16 12:27 | NUR ---
THORACENTESIS. RIGHT THORACENTESIS COMPLETED. 300 CC OF LIGHT BROWN FLUID RETURNED. SPECIMEN SENT TO LAB. AIR-SEALED STERILE DRESSING APPLIED. FOLLOW-UP CXR TAKEN. V/S BP 150/60 HR 84 RR 24 02 SAT 100%. TOLERATED PROCEDURE FAIRLY WELL.
[2019-06-16] MEDS: ACETAMINOPHEN 500 MG TAB PO PRN (14:06)
[2019-06-16] MEDS ORDERED: hydrALAZINE HCL 20 MG/ML VL IV PRN (15:15)
[2019-06-16] MEDS ORDERED: LEVOFLOXACIN 500MG 100 ML IV ONE (16:11)
--- NOTE | 2019-06-16 17:43 | NUR ---
Pt Arrived on Unit Pt arrived on unit from Ed via gurney. Pt is a/ox1-2; she is aware of self and that she is in the hospital but becomes easily confused at times. Pt is currently on 2L NC sating at 89%. Safety measures maintained with call light within reach, bed in lowest position, side rails up, and bed alarm on. Pt also has bradley catheter to which is free of kinks, draining to gravity and patent. Will continue to monitor for changes q1hr and prn.
--- NOTE | 2019-06-16 18:07 | NUR ---
Admission Pt unable to provide information regarding admission such as medications pt currently takes as well as pharmacy pt uses. Will attempt to complete admission as best as to my ability. Will endorse to NOC shift and attempt to gain all information r/t medical needs.
[2019-06-16 18:09] VITALS: BP 133/56
[2019-06-16] MEDS: Ensure HIGH Protein Vanilla 8oz Bottle PO SCH (18:29)
--- NOTE | 2019-06-16 18:29 | NUR ---
MRSA NARES SENT TO LAB
--- NOTE | 2019-06-16 18:40 | NUR ---
PT CHECKED FOR PRN TX. PT IS RESTING WITH NO ACUTE DISTRESS. PT DENIES SOB. TX IS NOT INDICATED. PT IS AWARE TO PAGE IF TX NEEDED. HR 100 RR 18 POX 96% VIA 3NC. B/S CLEAR BUT DECREASED.
--- NOTE | 2019-06-16 19:15 | NUR ---
Opening Shift Note Assumed care of patient, awake and alert. No S/S of distress/SOB or pain. Instructed on POC and to call for assist PRN, will continue to monitor for changes Q1hr and PRN.
--- NOTE | 2019-06-16 20:30 | NUR ---
PT IS VERY RESLESS AT THIS TIME AND TRYING TO GET OUT OF THE BED STATING THAT SHE WANT TO WALK TO THE BATHROOM TO VOID . PT IS ADVISED THAT SHE HAS A FOLLEY CATHETER.SHE APPEARS TO BE UNDERSTANDLNG AND SHE CALMED DOWN .NASO CANULA IS ON THE PLACE AND TKE O2 SATURATION= WNL.
[2019-06-16 21:26] LABS: % Iron Saturation 12.6 % (15-50)
[2019-06-16 21:52] VITALS: BP 149/86
[2019-06-16] MEDS: ATORVASTATIN 20 MG TAB PO SCH (21:58)
[2019-06-17 05:07] VITALS: BP 152/70
[2019-06-17 06:19] LABS: Basophils # (auto) 0 uL; Basophils % (auto) 0.5 % (0.0-2.0); Eosinophils # (auto) 0.1 uL; Eosinophils % (auto) 2.3 % (0.0-7.0); Hematocrit 24.9 % (36.0-46.0); Hemoglobin 8.2 g/dL (12.2-16.2); Lymphocytes # (auto) 1.4 uL; Mean Corpuscular Hemoglobin 30.5 pg (28.0-32.0); Mean Corpuscular Hgb Conc. 32.9 g/dL (32.0-36.0); Mean Corpuscular Volume 92.8 fL (80.0-100.0); Monocytes # (auto) 0.7 uL; Monocytes % (auto) 10.4 % (0.0-12.0); Neutrophils # (auto) 4.1 uL; Neutrophils % (auto) 64.8 % (37.0-80.0); Nucleated Red Blood Cells % 0.2 %; Platelet Count (auto) 282 10^3/uL (140-450); Red Blood Cells 2.68 10^6/uL (4.0-5.20); White Blood Cell 6.3 10^3/uL (4.4-10.8)
[2019-06-17 06:39] LABS: Chloride 109 mmol/L (98-107); Potassium 3.8 mmol/L (3.5-5.1); Sodium 142 mmol/L (136-145)
[2019-06-17 06:52] LABS: Alanine Aminotransferase 17 U/L (13-56); Albumin 2.3 g/dL (3.4-5.0); Alkaline Phosphatase 120 U/L (45-117); Anion Gap 4 (5-15); Aspartate Aminotransferase 14 U/L (15-37); BUN/Creatinine Ratio 15.9; Bilirubin, Total 0.4 mg/dL (0.2-1.0); Blood Urea Nitrogen 17 mg/dL (7-18); Calcium 8.7 mg/dL (8.5-10.1); Carbon Dioxide 29 mmol/L (21-32); Cholesterol 95 mg/dL (< 200); GFR African American 63 mL/min; GFR Non-African American 52 mL/min; Glucose 97 mg/dL (74-106); HDL Cholesterol 21 mg/dL (40-59); LDL Cholesterol 52 mg/dL (< 100); Magnesium 1.6 mg/dL (1.6-2.6); Total Protein 5.8 g/dL (6.4-8.2); Triglycerides 98 mg/dL (< 150)
--- NOTE | 2019-06-17 07:30 | NUR ---
Opening Note Assumed pt care from [facility] nurse. Pt is a/ox1-2; pt aware of self and time of day but has frequent periods of confusion; provided frequent re-orientation. Pt is currently laying upright in bed with no complaints at this time. Melendez catheter is patent, free of kinks, and draining to gravity. Discussed POC with pt; pt verbalized understanding. Safety measures maintained with call light within reach, bed in lowest position, side rails up and bed alarm on. Will continue to monitor for changes q1hr and prn.
[2019-06-17] MEDS: Ensure HIGH Protein Vanilla 8oz Bottle PO SCH ×3 (08:18→18:12)
[2019-06-17] MEDS: ONDANSETRON HCL 4 MG/2 ML VIAL IV PRN ×2 (08:33→18:54)
[2019-06-17] MEDS: CARVEDILOL 3.125 MG TAB PO SCH ×2 (08:43→21:57)
[2019-06-17] MEDS: FAMOTIDINE 20 MG TAB PO SCH (08:43)
[2019-06-17] MEDS: DULoxetine HCL 30 MG CAP PO SCH (08:43)
[2019-06-17] MEDS: RAMIPRIL 2.5 MG CAP PO SCH (08:43)
[2019-06-17 09:00] VITALS: BP 149/67
--- NOTE | 2019-06-17 10:23 | NUR ---
Redness Noted to Pt's R FA Mild redness and irritation noted to pt's R FA. Per pt's daughter, pt has a sensitivity to tape. Will continue to monitor site and avoid further irritation.
--- NOTE | 2019-06-17 10:39 | NUR ---
Dr Muller at Bedside MD to see pt. No new orders at this time. Will continue to monitor.
[2019-06-17 13:00] VITALS: BP 114/50
[2019-06-17] MEDS ORDERED: MAGNESIUM SULFATE 1GM/100ML 100 ML IV ONE (14:00)
--- NOTE | 2019-06-17 14:38 | NUR ---
Positive for MRSA Nares Michelle from Lab reported that pt did test positive for MRSA in Nares. Will notify charge. Will continue to monitor.
--- NOTE | 2019-06-17 15:00 | NUR ---
Respiratory note: PT ASSESSED FOR PRN. PT AWAKE ALERT AND RESPONSIVE. PT FOUND ON 2 LPM NC. SP02 98%. PT IN NO DISTRESS AT THIS TIME. NO COMPLAINT OF SOB. NO TX INDICATED AT THIS TIME. INFORMED ID TO HAVE RT PAGED IF BECOMES SOB.
--- NOTE | 2019-06-17 15:28 | NUR ---
assessment re: consult for discharge planning Patient is a 88 year old female who is confused. Patient thought she lived with her who some time ago. Patients daughters Farzaneh and Lisa were at bedside. Per family prior to admission patient resided at [facility] level 5 and functioned with the help of staff. Patient is able to wheel herself to the dining room. Patients PCP is Edwin RANGEL. Patient has a wheelchair at the facility. Patient has an advanced directive and both Farzaneh and Lisa are POA. Patient was admitted for respiratory failure. Patient will be checked by [facility] for oxygen needs post discharge. Patient will return to [facility] on discharge. Farzaneh and Lisa verbalized understanding and agreed to discharge plan home. Addendum: 06/17/19 at 1533 by Robyn BERGERON Amended: Links added.
[2019-06-17] MEDS: LEVOFLOXACIN 750MG 150 ML IV SCH (16:28)
[2019-06-17 17:07] VITALS: BP 125/78
--- NOTE | 2019-06-17 18:03 | NUR ---
IV Insertion and Removal IV insertion to pt's L wrist, 22 G with one attempt. Pt tolerated insertion well. IV is patent. IV D/C'ed from pt's L FA due to leaking and no longer being patent. Site is asymptomatic. Pressure was applied to site for 3 minutes with gauze and then wrapped in coban. Pt tolerated removal well.
--- NOTE | 2019-06-17 19:50 | NUR ---
Opening Shift Note Assumed care of patient, awake, AAOx3, reoriented to situation. No S/S of distress/SOB or pain. On 2L oxygen via nasal cannula. On bedrest, bradley catheter patent and draining to gravity. Bed in lowest locked position, side rails up x2, call light within reach. Instructed on POC and to call for assist PRN, will continue to monitor for changes Q1hr and PRN.
[2019-06-17] MEDS: ATORVASTATIN 20 MG TAB PO SCH (21:56)
[2019-06-17 22:16] VITALS: BP 138/64
--- NOTE | 2019-06-17 23:00 | NUR ---
RT NOTE: PT ASSESSED FOR PRN TX. TX NOT INDICATED. SPO2 96% ON 2L NASAL CANNULA, HR 86, DIMINISHED BS. WILL CONT TO MONITOR PT @ THIS TIME.
[2019-06-18] VITALS (9 sets, daily range): BP systolic 112–150; BP diastolic 49–67
--- NOTE | 2019-06-18 05:46 | NUR ---
PT ASSESSED FOR PRN HHN TX. PT IS ON 2LNC, SPO2 97%, HR 86, RR 20. NO S/S OF RESPIRATORY DISTRESS. TX NOT INDICATED AT THIS TIME. WILL CONTINUE TO MONITOR.
[2019-06-18 06:39] LABS: Potassium 3.9 mmol/L (3.5-5.1)
[2019-06-18 06:41] LABS: BUN/Creatinine Ratio 17.8
--- NOTE | 2019-06-18 07:30 | NUR ---
Opening Shift Note Assumed care of patient, who is alert and oriented x2-3. Patient could not remember her and where she was. No S/S of distress/SOB or pain. Patient is reporting some abdominal discomfort, she stated she has not had BM in a couple of days and is requesting PRN medication. Will medicate per MD order. 22g IV to the left wrist is asymptomatic, patent and intact. Patient has mild weakness to bilateral extremities, bed alarm is on. Bed is low, locked with 2x side rails up. Contact precautions in place due to MRSA in nares. Call light is within reach. Instructed on POC and to call for assist PRN, will continue to monitor for changes Q1hr and PRN.
--- NOTE | 2019-06-18 07:45 | NUR ---
Stool Occult Sample Advised patient that this nurse needs to collect stool sample. Gave instructions to patient and needed supplies are at bedside. Patient stated that she has not had a BM in a couple of days so she is not sure if she can provide a sample.
[2019-06-18] MEDS: Ensure HIGH Protein Vanilla 8oz Bottle PO SCH ×3 (08:25→18:53)
[2019-06-18] MEDS: ONDANSETRON HCL 4 MG/2 ML VIAL IV PRN (08:25)
[2019-06-18] MEDS: CARVEDILOL 3.125 MG TAB PO SCH ×2 (09:56→22:25)
[2019-06-18] MEDS: DULoxetine HCL 30 MG CAP PO SCH (09:57)
[2019-06-18] MEDS: RAMIPRIL 2.5 MG CAP PO SCH (09:57)
[2019-06-18] MEDS: FAMOTIDINE 20 MG TAB PO SCH (09:57)
--- NOTE | 2019-06-18 10:25 | NUR ---
Dr. Shaikh Morris Updated on POC. New orders received/carried out.
--- NOTE | 2019-06-18 12:30 | NUR ---
NUTRITION ASSESSMENT NOTES Please refer to link notes of nutrition screen form filed under the intervention section of the plan of care for further details. Est. Needs: 1500 kcal to 1850 kcal (20-25 kcal/kgBW), 60 gms to 75 gms pro (0.8-1.0 gms/kgBW). Will continue to monitor pertinent labs and reassess nutrient need prn Thank you. Addendum: 06/18/19 at [address] Amended: Links added.
--- NOTE | 2019-06-18 15:44 | NUR ---
MRSA SWAB SENT TO LAB
--- NOTE | 2019-06-18 16:39 | NUR ---
Discharge planning per SS consult, patient has orders for a hospice evaluation. On encounter patient's daughter signed the choice vendor form and choose [facility] [phone]. Placed a follow up call,spoke with Ibeth and was advised that they will come out on 06.19.2019 to perform eval and make arrangements for discharge same day.
[2019-06-18] MEDS: ACETAMINOPHEN 500 MG TAB PO PRN (17:40)
--- NOTE | 2019-06-18 19:30 | NUR ---
Opening Shift Note Assumed care of patient, awake, AAOx3, reoriented to situation. No S/S of distress/SOB or pain. On 2L oxygen via nasal cannula. On bedrest, bradley catheter patent and draining to gravity. Isolation precautions in place. Bed in lowest locked position, side rails up x3, bed alarm on, call light within reach. Instructed on POC and to call for assist PRN, will continue to monitor for changes Q1hr and PRN.
[2019-06-18] MEDS: MUPIROCIN 2% OINT 15gm or 22gm EACHNOSTRI SCH (22:24)
[2019-06-18] MEDS: ATORVASTATIN 20 MG TAB PO SCH (22:25)
[2019-06-19 05:30] VITALS: BP 144/51
--- NOTE | 2019-06-19 07:15 | NUR ---
Opening Shift Note Assumed care of patient, who is alert and oriented x2-3. No S/S of distress/SOB or pain. 22g IV to the left wrist is asymptomatic, patent and intact. Patient has mild weakness to bilateral extremities, bed alarm is on. Bed is low, locked with 2x side rails up. Contact precautions in place. Call light is within reach. Instructed on POC and to call for assist PRN, will continue to monitor for changes Q1hr and PRN. Addendum: 06/19/19 at 0726 by Erika Lamar RN RN Melendez catheter is hung below bladder, patent and draining to gravity.
[2019-06-19 07:36] LABS: BUN/Creatinine Ratio 18.9; Calcium 8.9 mg/dL (8.5-10.1)
[2019-06-19 08:00] VITALS: BP 129/47
--- NOTE | 2019-06-19 08:28 | NUR ---
Scheduled VQ scan Per Nuclear Medicine Kelvin, he stated that patient will most likely not have VQ scan done today due to having limited gas. Will update family and MD.
--- NOTE | 2019-06-19 08:59 | NUR ---
VQ Scan Patient being taken down via bed to nuclear medicine for ordered VQ scan. No distress noted on departure.
[2019-06-19 09:00] VITALS: BP 129/47
--- NOTE | 2019-06-19 09:25 | NUR ---
Patient back from VQ scan No distress noted upon return. Will continue to monitor.
[2019-06-19] MEDS ORDERED: amLODIPine BESYLATE 5 MG TAB PO SCH (10:00)
[2019-06-19] MEDS: FAMOTIDINE 20 MG TAB PO SCH (10:08)
[2019-06-19] MEDS: CARVEDILOL 3.125 MG TAB PO SCH (10:08)
[2019-06-19] MEDS: MUPIROCIN 2% OINT 15gm or 22gm EACHNOSTRI SCH (10:08)
[2019-06-19] MEDS: DULoxetine HCL 30 MG CAP PO SCH (10:08)
[2019-06-19] MEDS: Ensure HIGH Protein Vanilla 8oz Bottle PO SCH ×3 (10:09→18:00)
[2019-06-19] MEDS: ONDANSETRON HCL 4 MG/2 ML VIAL IV PRN (10:15)
[2019-06-19 13:00] VITALS: BP 143/72
--- NOTE | 2019-06-19 13:17 | NUR ---
MRSA Swab Called lab to make sure they received MRSA swab. Per can labeler, they received the MRSA swab yesterday 06/18 at 1540, and it takes 24 hours to result. Will update .
[2019-06-19] MEDS ORDERED: AML5T PO (13:18)
[2019-06-19] MEDS ORDERED: LEVO250T19 PO (13:18)
[2019-06-19 15:25] VITALS: BP 143/72
--- NOTE | 2019-06-19 16:00 | NUR ---
Report Called [facility] assisted living and gave report. Notified them that patient is negative for MRSA.
[2019-06-19] MEDS: LEVOFLOXACIN 750MG 150 ML IV SCH (16:30)
--- NOTE | 2019-06-19 17:18 | NUR ---
Contacted [facility] Per social research assistant patient scheduled to be picked up and transported back to [facility] at 1700. Spoke with Adia from [facility] and she will be contacting this nurse with [facility] for transport.
--- NOTE | 2019-06-19 17:45 | NUR ---
Discharge instructions given as ordered. Encourage to follow up with PMD as instructed. All questions and concerns addressed. Patient verbalized understanding. Medication reconciliation form completed and copy given to patient. IV removed with catheter intact, pressure dressing applied, bradley catheter removed. Telemetry unit returned to ICU. Patient taken by safety transportation via gurney with all personal belongings back to [facility] living, accompanied by family member. No distress noted at time of departure.
--- NOTE | 2019-06-19 17:52 | NUR ---
Spoke with Anne at [facility] [phone] and was advised that patient's transportation was arranged with Safety [phone], and the scheduled meat pickler time is 5pm to return to [facility]. Spoke with Heating Worker Jenelle and advised that patient will continue on Bacitracin for MRSA of the nares. Spoke with [facility] rep Rodríguez to inquire if they will retest patient for clearance aftertreatment, she consulted with CRUZ Smith who advised the retest patient upon completion of med management for the nares. Nurse James was advised of dc plan.
== END 2019-06-19 19:37 | disposition hospice, home (50) | DRG 186 ==
LOC: ER 08:53 → EDBD 08:53 → TELE 08:54 → TELE-EAST 06-16 17:44
PROVIDERS: ADMIT Nurse Practitioner Acute Care; ATTEND Internal Medicine
PROC: 0W993ZZ Drainage of Right Pleural Cavity, Percutaneous Approach (ICD-10-PCS; principal; 2019-06-16)
DX: J90 Pleural effusion, not elsewhere classified (principal); J96.01 Acute respiratory failure with hypoxia; J18.9 Pneumonia, unspecified organism; N17.0 Acute kidney failure with tubular necrosis; N39.0 Urinary tract infection, site not specified; L03.114 Cellulitis of left upper limb; B96.20 Unspecified Escherichia coli [E. coli] as the cause of diseases classified elsewhere; F03.90 Unspecified dementia, unspecified severity, without behavioral disturbance, psychotic disturbance, mood disturbance, and anxiety; E78.5 Hyperlipidemia, unspecified; K80.20 Calculus of gallbladder without cholecystitis without obstruction; Z53.20 Procedure and treatment not carried out because of patient's decision for unspecified reasons; R91.8 Other nonspecific abnormal finding of lung field; D64.9 Anemia, unspecified; Z96.649 Presence of unspecified artificial hip joint; J43.9 Emphysema, unspecified; I12.9 Hypertensive chronic kidney disease with stage 1 through stage 4 chronic kidney disease, or unspecified chronic kidney disease; N18.9 Chronic kidney disease, unspecified; Z79.899 Other long term (current) drug therapy; Z83.3 Family history of diabetes mellitus; Z84.1 Family history of disorders of kidney and ureter; Z85.118 Personal history of other malignant neoplasm of bronchus and lung; Z87.440 Personal history of urinary (tract) infections; Z90.710 Acquired absence of both cervix and uterus; Z99.3 Dependence on wheelchair; Z87.891 Personal history of nicotine dependence; Z91.040 Latex allergy status; Z88.0 Allergy status to penicillin; Z91.09 Other allergy status, other than to drugs and biological substances
CPT/HCPCS: 10022; 36415; 36600; 71045; 71250; 73562; 76604; 76942; 78582; 80048; 80053; 80061; 81001; 82805; 83540; 83550; 83735; 83880; 84443; 84484; 85025; 85379; 85610; 85730; 87040; 87081; 87205; 89051; 93005; 93306; 94640; 97163; G0378; J1956; J2405; J2543